=== PATIENT | male | born 1945 | race Caucasian/White ===

== ENCOUNTER 2021-06-02 15:22 | Emergency (ER) | payer MEDICARE, OTHER ==
[2021-06-02 16:39] LABS: HEMOGLOBIN 13.8 gm/dl (14.0-17.5); RED BLOOD COUNT 4.29 M/UL (4.20-5.50); WHITE BLOOD COUNT 7.5 K/UL (4.5-11.0)
[2021-06-02 17:05] LABS: BUN/CREATININE RATIO 16 (0-10)
== END 2021-06-02 19:59 | disposition home or self-care (01) ==
LOC: ER1 15:22
PROVIDERS: Emergency Medicine
DX: R07.9 Chest pain, unspecified (principal); J44.9 Chronic obstructive pulmonary disease, unspecified; I11.9 Hypertensive heart disease without heart failure; Z20.822 Contact with and (suspected) exposure to COVID-19
CPT/HCPCS: 0240U; 71045; 71250; 80048; 82550; 82553; 83874; 83880; 84484; 85025; 93005; 99285